=== PATIENT | male | born 1935 | race Caucasian/White ===

== ENCOUNTER → 2024-07-27 | Outpatient (CLI) | payer MEDICARE ==
--- NOTE | 2024-07-27 09:59 | US ---
EXAMINATION TYPE: US prostate transrectal DATE OF EXAM: 07/27/2024 COMPARISON: NONE CLINICAL INDICATION: Male, 88 years old with history of R97.20 ELEVATED PSA LEVELS; Elevated PSA TECHNIQUE: Grayscale and color Doppler imaging of the prostate gland. This examination was performed using the transrectal probe. EXAM MEASUREMENTS: Gland Size: 5.2 x 2.9 x 5.4 cm Volume: 42.6 Predicted PSA: 5.1 Actual PSA (if available):4.0 IMPRESSION: 1. No suspicious masses visualized. 2. Note that prostate MRI is a more sensitive exam for the detection of clinically significant prost ate adenocarcinoma. Predicted PSA = volume x 0.12 ng/ml Calculated Volume = 0.5236 x L x W x [facility], , 07/27/2024 9:57 AM
== END | disposition home or self-care (01) ==
LOC: RADUSWWP 09:11
PROVIDERS: ATTEND Internal Medicine
DX: C61 Malignant neoplasm of prostate (principal); R97.20 Elevated prostate specific antigen [PSA]
CPT/HCPCS: 76872